=== PATIENT | female | born 1995 | race African-American/Black ===

== ENCOUNTER 2017-04-23 12:49 | Emergency (ER) ==
[2017-04-23] MEDS ORDERED: Acetaminophen 325 MG TAB ONE (14:17)
== END 2017-04-23 13:59 | disposition home or self-care (01) ==
LOC: ERS 12:49
DX: O9A.311 Physical abuse complicating pregnancy, first trimester (principal); S40.022A Contusion of left upper arm, initial encounter; S40.212A Abrasion of left shoulder, initial encounter; Y04.0XXA Assault by unarmed brawl or fight, initial encounter; Z3A.00 Weeks of gestation of pregnancy not specified
CPT/HCPCS: 99284

== ENCOUNTER 2018-03-23 18:28 | Emergency (ER) | payer SELFPAY ==
[2018-03-23] MEDS ORDERED: Acetaminophen 500 MG TAB ONE (19:31)
[2018-03-23 19:42] LABS: #Basophils 0.1 thou/uL (0.0-0.2); #Eosinphils 0.2 thou/uL (0.0-0.7); #Lymphocytes 1.9 thou/uL (1.20-3.40); #Monocytes 0.4 thou/uL (0.11-0.59); #Neutrophils 3.9 thou/uL (1.40-6.50); %Basophils 0.9 % (0.0-1.0); %Eosinophils 3.1 % (0.0-10.0); %Lymphocytes 29.6 % (21.0-51.0); %Monocytes 5.9 % (0.0-10.0); %Neutrophils 60.6 % (42.0-75.0); Hemoglobin 12.3 g/dL (12.0-16.0); Mean Corpuscular HGB CONC 31.1 g/dL (32.0-36.0); Mean Corpuscular Hemoglobin 25.3 pg (27.0-31.0); Mean Corpuscular Volume 81.2 fL (78.0-98.0); Mean Platelet Volume 9.1 fL (7.4-10.4); Platelet Count 215 thou/uL (130-400); RBC Distribution Width 13.3 % (11.5-14.5); Red Blood Cell (RBC) Count 4.88 mill/uL (4.20-5.40); White Blood Cell (WBC) Count 6.4 thou/uL (4.8-10.8)
[2018-03-23 19:52] LABS: BHCG - Serum Negative (NEGATIVE); Pregs Control Background? CLEAR/WHITE (CLR/WHITE); Pregs Control Bar Appear? YES (CONTROL BAR)
[2018-03-23 20:03] LABS: ALT (SGPT) 17 U/L (8-55); AST (SGOT) 18 U/L (5-34); Acetaminophen Less than 6.0 mcg/mL (10.0-30.0); Albumin 4.5 g/dL (3.5-5.0); Alcohol Less than 10 mg/dL (Less than 10); Alkaline Phosphatase 46 U/L (40-150); Anion Gap 10 mmol/L (10-20); BUN (Urea Nitrogen) 12 mg/dL (7.0-18.7); Bilirubin, Total 0.3 mg/dL (0.2-1.2); CK (CPK) 103 U/L (29-168); Calc. Creatinine Clearance 0 mL/min (70-130); Calcium 9.9 mg/dL (7.8-10.44); Carbon Dioxide 24 mmol/L (22-29); Chloride 109 mmol/L (98-107); Estimated GFR-MDRD Greater than 90; Globulin 3.2 g/dL (2.4-3.5); Glucose 95 mg/dL (70-105); Potassium 3.7 mmol/L (3.5-5.1); Protein, Total 7.7 g/dL (6.0-8.3); Salicylate Less than 8.0 mg/dL (15.0-30.0); Sodium 139 mmol/L (136-145)
--- NOTE | 2018-03-23 20:56 | CT ---
CT BRAIN WITHOUT CONTRAST: 03/23/2018 PROVIDED CLINICAL HISTORY: Head pain, status post injury. FINDINGS: The ventricular system appears normal in size and morphology. There is no evidence for intracranial hemorrhage or mass effect. Minimal frontal scalp swelling without evidence for skull fracture. IMPRESSION: No evidence for intracranial hemorrhage or mass effect. POS: ODALYS
[2018-03-23 21:02] LABS: Bilirubin Negative (Negative); Blood, Urine Moderate (Negative); Clarity CLEAR (Clear); Glucose, Urine (Dipstick) Negative (Negative); Leukocyte Small (Negative); Nitrite Negative (Negative); Protein, Urine (Dipstick) 30 mg/dL (Neg-Trace); Specific Gravity, Urine 1.029 (1.002-1.036)
[2018-03-23 21:04] LABS: Bacteria/HPF None Seen HPF (None Seen); Hyaline Casts/LPF 4-6 HYALINE CAST LPF (0-3 Hyaline); Pathc Cast-AUWi Flag 0.29 (0-2.49)
[2018-03-23 21:12] LABS: Amphetamine Not Detected (NotDetected); Barbiturates Screen Not Detected (NotDetected); Benzodiazepine Screen Not Detected (NotDetected); Cocaine Metabolite Screen Not Detected (NotDetected); Medtox Control Line Valid? VALID (VALID); Medtox Reader # READER 4; Methadone Not Detected (NotDetected); Methamphetamine Not Detected (NotDetected); Opiate Screen Not Detected (NotDetected); Oxycodone Screen Not Detected (NotDetected); Phencyclidine (PCP) Not Detected (NotDetected); THC/Cannabinoid Screen Detected (NotDetected); Tricyclic Screen Not Detected (NotDetected)
== END 2018-03-23 21:45 | disposition home or self-care (01) ==
LOC: ERS 18:28
DX: S01.01XA Laceration without foreign body of scalp, initial encounter (principal); F43.20 Adjustment disorder, unspecified; W22.09XA Striking against other stationary object, initial encounter
CPT/HCPCS: 36415; 70450; 80053; 80306; 80307; 81003; 81015; 82550; 84443; 84703; 85025

== ENCOUNTER 2018-10-05 07:46 | Outpatient (CLI) | payer OTHER ==
--- NOTE | 2018-10-05 10:54 | ULT ---
ULTRASOUND OBSTETRICAL COMPLETE: DATE: 10/05/2018. HISTORY: A 23-year-old female for O09.92, supervision of other high-risk pregnancies, second trimest er. Comments: complete anatomy/size and dates. FINDINGS: number: Blanco. lie: Cephalic. Maternal cervix: 3.5 cm and closed. Placenta: Anterior. No placenta previa. Amniotic fluid volume: MOE=8.5 cm. heart rate: 149 b.p.m. The following anatomy is visualized, with no evidence of anomalies: Head, lateral ventricles, cerebellum, nose and lips, upper limbs, lower limbs, four chamber heart, um bilical cord, cord insertion, stomach, kidneys, and bladder. Spine not well visualized because of position and movement. biometry: Head circumference (HC): 17.4 cm 20 w 0 d Biparietal diameter (BPD): 4.4 cm 19 w 2 d Abdominal circumference (AC): 14.6 cm 20 w 0 d Femur length (FL): 3.2 cm 20 w 0 d Average ultrasound age (AUA): 19 w 6 d Estimated date of delivery (ELTON): 02/23/2019. Last menstrual period (LMP): 05/18/2018. Gestational age by LMP: 20 w 0 d. Estimated weight (EFW): 318 g +/- 46 g (0 lb 11 oz +/- 2 oz. IMPRESSION: 1. Live 2nd trimester intrauterine gestation. 2. Estimated gestational age of 19 weeks, 6 days. 3. Cephalic lie. 4. spine poorly visualized because of position and motion. 5. Otherwise, normal anatomy. sandie [] POS: TRICIA
== END 2018-10-05 07:47 | disposition home or self-care (01) ==
LOC: BICULT 07:46
PROVIDERS: ATTEND Family Medicine
DX: O09.892 Supervision of other high risk pregnancies, second trimester (principal); Z3A.19 19 weeks gestation of pregnancy
CPT/HCPCS: 76805

== ENCOUNTER 2019-02-15 05:30 | Inpatient (IN) | payer OTHER ==
[2019-02-15] MEDS ORDERED: HYDROcodone/Acetaminophen 5/325 mg Tablet PO PRN ×3 (06:34→18:00)
[2019-02-15] MEDS ORDERED: Diphenoxylate HCl/Atropine Tablet PO PRN (06:34)
[2019-02-15] MEDS ORDERED: NS / Oxytocin 40 units/1000ml 1,000 ML IV PRN (06:34)
[2019-02-15] MEDS ORDERED: Butorphanol Tartrate 1 MG/ML VIAL SLOW IVP PRN (06:34)
[2019-02-15] MEDS ORDERED: Methylergonovine 0.2 MG/ML VIAL IM PRN ×2 (06:34→18:00)
[2019-02-15] MEDS ORDERED: Lidocaine 1% (PF) 30 ML VIAL SC PRN (06:34)
[2019-02-15] MEDS ORDERED: NS w/ Oxytocin 10 units 500 ML IV SCH ×2 (06:34)
[2019-02-15] MEDS ORDERED: Ibuprofen 800 MG TAB PO PRN (06:34)
[2019-02-15] MEDS ORDERED: Misoprostol 200 MCG TAB PR PRN (06:34)
[2019-02-15] MEDS ORDERED: Penicillin G Potassium 5 MILL.UNITS in Sodium Chloride 0.9% 100 ML IVPB SCH (06:34)
[2019-02-15] MEDS ORDERED: Ondansetron PF 4 MG/2 ML Vial IVP PRN ×4 (06:34→18:00)
[2019-02-15] MEDS ORDERED: Carboprost 250 MCG/ML AMP IM PRN (06:34)
[2019-02-15] MEDS ORDERED: hydrALAZINE 20 MG/ML VIAL SLOW IVP PRN ×2 (06:34→18:00)
[2019-02-15] MEDS ORDERED: Promethazine HCl 25 MG/ML VIAL IM PRN ×4 (06:34→18:00)
[2019-02-15 06:49] VITALS: BMI 26.2
[2019-02-15] MEDS: Lactated Ringer's 1,000 ML IV SCH ×2 (06:50→09:01)
[2019-02-15 07:16] LABS: Hemoglobin 9.9 g/dL (12.0-16.0); Mean Corpuscular HGB CONC 32.4 g/dL (32.0-36.0); Mean Corpuscular Hemoglobin 24.6 pg (27.0-31.0); Mean Corpuscular Volume 75.9 fL (78.0-98.0); Mean Platelet Volume 8.8 fL (7.4-10.4); Platelet Count 231 thou/uL (130-400); RBC Distribution Width 13.4 % (11.5-14.5); Red Blood Cell (RBC) Count 4.01 mill/uL (4.20-5.40); White Blood Cell (WBC) Count 7.9 thou/uL (4.8-10.8)
[2019-02-15 07:42] LABS: Syphilis Antibody Nonreactive (Nonreactive); Syphilis Antibody Index 0.05 S/CO (<1.00 Non-Reactive)
[2019-02-15 07:52] LABS: HBSAg Index 0.19 S/CO (0-0.99); Hep B Surf Ag Non-Reactive S/CO (NonReactive)
[2019-02-15] MEDS ORDERED: Fentanyl 4 mcg/Bup 0.1% Cadd 100 ML ONE ×2 (08:10→15:54)
[2019-02-15] MEDS ORDERED: diphenhydrAMINE 50 MG/ML VIAL IVP PRN ×2 (08:53)
[2019-02-15] MEDS ORDERED: ePHEDrine/0.9% NaCl/PF SYRINGE 50 mg/10 ml SLOW IVP PRN ×2 (08:53)
[2019-02-15] MEDS ORDERED: Lactated Ringer's 500 ML IV PRN ×2 (08:53)
[2019-02-15] MEDS ORDERED: Acetaminophen 325 MG TAB PO PRN ×2 (08:53)
[2019-02-15] MEDS ORDERED: Naloxone HCl 0.4 mg/ml Vial IVP PRN ×4 (08:53)
[2019-02-15] MEDS ORDERED: Fentanyl 4 mcg/Bupivacaine 0.1% Cassette 100 ML EPIDURAL SCH (09:00)
[2019-02-15] MEDS ORDERED: Communication Order-Pharmacy FS SCH ×2 (09:00)
[2019-02-15] MEDS: Penicillin G 2.5 MILL.units 2.5 MILL.UNITS in Premix Bag 1 BAG IVPB SCH ×2 (11:15→15:17)
[2019-02-15] MEDS ORDERED: Misoprostol 200 MCG TAB ONE (16:47)
[2019-02-15] MEDS ORDERED: Preparation H Ointment 28 GM TUBE PR PRN (18:00)
[2019-02-15] MEDS ORDERED: diphenhydrAMINE 25 MG CAP PO PRN (18:00)
[2019-02-15] MEDS ORDERED: Benzocaine-Menthol 82.5 ML CAN TOP PRN (18:00)
[2019-02-15] MEDS ORDERED: NS / Oxytocin 40 units/1000ml 1,000 ML IV SCH (18:00)
[2019-02-15] MEDS ORDERED: Adacel (T-DAP) 0.5 ML SYRINGE IM ONE (18:00)
[2019-02-15] MEDS ORDERED: Milk Of Magnesia 30 ML UDCUP PO PRN (18:00)
[2019-02-15] MEDS ORDERED: Bisacodyl 10 MG SUPP PR PRN (18:00)
[2019-02-15] MEDS: Docusate Calcium (SURFAK) 240 MG CAP PO SCH (23:15)
[2019-02-15] MEDS: Ibuprofen 800 MG TAB PO SCH (23:15)
[2019-02-16] MEDS: Ibuprofen 800 MG TAB PO SCH ×3 (06:18→23:14)
[2019-02-16 06:19] LABS: Hemoglobin 9.1 g/dL (12.0-16.0); Mean Corpuscular HGB CONC 31.6 g/dL (32.0-36.0); Mean Corpuscular Hemoglobin 24.5 pg (27.0-31.0); Mean Corpuscular Volume 77.6 fL (78.0-98.0); Mean Platelet Volume 8.9 fL (7.4-10.4); Platelet Count 194 thou/uL (130-400); RBC Distribution Width 13.6 % (11.5-14.5); Red Blood Cell (RBC) Count 3.72 mill/uL (4.20-5.40); White Blood Cell (WBC) Count 11.3 thou/uL (4.8-10.8)
[2019-02-16] MEDS: Docusate Calcium (SURFAK) 240 MG CAP PO SCH ×2 (11:01→20:59)
[2019-02-16] MEDS: Prenatal Vitamin 1 TAB PO SCH (11:01)
[2019-02-16] MEDS: Ferrous Sulfate 325 MG TAB PO SCH (11:02)
[2019-02-17] MEDS: Ibuprofen 800 MG TAB PO SCH ×2 (06:30→07:58)
[2019-02-17] MEDS: Ferrous Sulfate 325 MG TAB PO SCH ×2 (07:58→08:53)
[2019-02-17 08:05] VITALS: BP 106/66; TEMP 98.4
[2019-02-17] MEDS: Prenatal Vitamin 1 TAB PO SCH (08:53)
[2019-02-17] MEDS: Docusate Calcium (SURFAK) 240 MG CAP PO SCH (08:53)
== END 2019-02-17 13:27 | disposition home or self-care (01) | DRG 807 ==
LOC: L&D 06:15 → 3SW 21:53
PROVIDERS: ADMIT Family Medicine; ATTEND Family Medicine
PROC: 10E0XZZ Delivery of Products of Conception, External Approach (ICD-10-PCS; principal; 2019-02-15)
DX: O99.824 Streptococcus B carrier state complicating childbirth (principal); Z37.0 Single live birth; Z3A.39 39 weeks gestation of pregnancy; O71.82 Other specified trauma to perineum and vulva
CPT/HCPCS: 36415; 51702; 85027; 86780; 86850; 86900; 86901; 87340; J2540; J2590; J3490

== ENCOUNTER 2019-06-07 19:52 | Emergency (ER) | payer OTHER, SELFPAY | END 2019-06-07 21:01 | disposition home or self-care (01) | LOC: ERS 19:52 | DX: R51 Headache (principal) | CPT/HCPCS: 99281 ==

== ENCOUNTER 2019-07-21 01:57 | Emergency (ER) | payer SELFPAY ==
[2019-07-21] MEDS ORDERED: Mag-Al 1200 mg/1200 mg/30 ML UDCUP ONE (02:23)
[2019-07-21] MEDS ORDERED: Lidocaine Viscous Sol 2% 15 ml UD Cup ONE (02:23)
[2019-07-21 02:26] LABS: Bilirubin Negative (Negative); Blood, Urine Negative (Negative); Clarity Clear (Clear); Glucose, Urine (Dipstick) Normal (Negative); Leukocyte Negative Leu/uL (Negative); Nitrite Negative (Negative); Protein, Urine (Dipstick) 10 mg/dL (Neg-Trace); Urobilinogen Normal mg/dL (Less than 2)
[2019-07-21 02:27] LABS: Pregnancy Test - Urine (BHCG) Negative (Negative); Pregu Control Background? CLEAR/WHITE (CLR/WHITE); Pregu Control Bar Appear? YES (CONTROL BAR)
== END 2019-07-21 02:45 | disposition home or self-care (01) ==
LOC: ERS 01:57
DX: R10.12 Left upper quadrant pain (principal); F17.200 Nicotine dependence, unspecified, uncomplicated
CPT/HCPCS: 81003; 81025; 99284

== ENCOUNTER 2020-03-09 08:25 | Outpatient (CLI) | payer OTHER ==
--- NOTE | 2020-03-09 10:49 | ULT ---
OB ULTRASOUND: History anatomy. FINDINGS: A single live intrauterine gestation is seen with measurements corresponding to an estimated gestatio nal age of 19 weeks 6 days and ELTON at 07/28/2020. The estimated weight measures 304 gm or 11 ou nces (20% by Hadlock criteria). Biometry: BPD 4.62 cm, 20 weeks 0 days. HC 17.12 cm, 19 weeks 5 days AC 13.69 cm, 19 weeks 1 day FL 3.26 cm, 20 weeks 2 days heart rate measures 147 b.p.m. MOE measures 12.2 cm. The placenta is anteriorly located witho ut evidence of placenta previa. Cervical length measures 3.2 cm. A 3-vessel cord, cord insertion, kidneys, bladder, stomach, 4-chamber heart, lateral ventricles , cerebellum, spine, lips/nose, upper and lower extremities are visualized. No definite anomalies ar e seen. Maternal organs are not visualized. IMPRESSION: Single live intrauterine of 19 weeks 6 days and estimated date of delivery at 07/28/2020. POS: JARON
== END 2020-03-09 08:26 | disposition home or self-care (01) ==
LOC: BICULT 08:25
PROVIDERS: ATTEND Family Medicine
DX: O09.292 Supervision of pregnancy with other poor reproductive or obstetric history, second trimester (principal); Z3A.19 19 weeks gestation of pregnancy
CPT/HCPCS: 76805

== ENCOUNTER 2021-02-06 12:37 | Emergency (ER) | payer OTHER, SELFPAY ==
[2021-02-06 14:13] LABS: #Basophils 0.1 thou/uL (0.0-0.2); #Eosinphils 0.1 thou/uL (0.0-0.7); #Lymphocytes 1.6 thou/uL (1.20-3.40); #Monocytes 0.3 thou/uL (0.11-0.59); #Neutrophils 3.9 thou/uL (1.40-6.50); %Basophils 1.1 % (0.0-1.0); %Eosinophils 0.9 % (0.0-10.0); %Lymphocytes 26.7 % (21.0-51.0); %Monocytes 4.7 % (0.0-10.0); %Neutrophils 66.6 % (42.0-75.0); BHCG - Serum POSITIVE (NEGATIVE); Mean Corpuscular HGB CONC 32.8 g/dL (32.0-36.0); Mean Corpuscular Hemoglobin 26.3 pg (27.0-31.0); Mean Corpuscular Volume 80.1 fL (78.0-98.0); Mean Platelet Volume 8.9 fL (7.4-10.4); Platelet Count 233 thou/uL (130-400); Pregs Control Background? CLEAR/WHITE (CLR/WHITE); Pregs Control Bar Appear? YES (CONTROL BAR); Red Blood Cell (RBC) Count 4.57 mill/uL (4.20-5.40); White Blood Cell (WBC) Count 5.8 thou/uL (4.8-10.8)
[2021-02-06 14:32] LABS: ALT (SGPT) 14 U/L (8-55); AST (SGOT) 16 U/L (5-34); Albumin 4.2 g/dL (3.5-5.0); Alkaline Phosphatase 63 U/L (40-110); Anion Gap 10 mmol/L (10-20); BUN (Urea Nitrogen) 8 mg/dL (7.0-18.7); Bilirubin, Total 0.4 mg/dL (0.2-1.2); Calc. Creatinine Clearance 0 mL/min (70-130); Calcium 10.4 mg/dL (7.8-10.44); Carbon Dioxide 23 mmol/L (22-29); Chloride 107 mmol/L (98-107); Globulin 3.6 g/dL (2.4-3.5); Glucose 91 mg/dL (70-105); Potassium 3.7 mmol/L (3.5-5.1); Protein, Total 7.8 g/dL (6.0-8.3); Sodium 136 mmol/L (136-145)
== END 2021-02-06 15:25 | disposition home or self-care (01) ==
LOC: ERS 12:37
DX: O99.891 Other specified diseases and conditions complicating pregnancy (principal); R55 Syncope and collapse; O99.331 Smoking (tobacco) complicating pregnancy, first trimester; F17.200 Nicotine dependence, unspecified, uncomplicated; Z3A.01 Less than 8 weeks gestation of pregnancy
CPT/HCPCS: 36415; 80053; 84703; 85025; 86850; 86900; 86901; 93005

== ENCOUNTER 2025-02-17 10:54 | Emergency (ER) | payer OTHER ==
[2025-02-17 12:19] LABS: Bacteria/HPF None Seen HPF (None Seen); CAUTI Indications for Culture Pelvic or flank pain; Glucose, Urine (Dipstick) Normal (Negative); Leukocyte Negative Leu/uL (Negative); Protein, Urine (Dipstick) 10 mg/dL (Neg-Trace); RBC/HPF 0-3 HPF (0-3); Specific Gravity, Urine 1.028 (1.002-1.036); WBC/HPF 0-3 HPF (0-3)
[2025-02-17 12:21] LABS: Urine Culture Reflex No No
[2025-02-17 13:12] LABS: #Basophils Less than 0.03 10x3/uL (0.0-0.2); #Eosinophils Less than 0.03 10x3/uL (0.0-0.7); #Monocytes 0.29 10x3/uL (0.11-0.59); #Neutrophils 11.41 10x3/uL (1.40-6.50); %Basophils 0.1 % (0.0-1.0); %Eosinophils 0.0 % (0.0-10.0); %Lymphocytes 5.4 % (21.0-51.0); %Monocytes 2.3 % (0.0-10.0); %Neutrophils 91.5 % (42.0-75.0); Hematocrit 29.6 % (36.0-47.0); Hemoglobin 9.1 g/dL (12.0-16.0); Mean Corpuscular Hemoglobin 23.7 pg (27.0-31.0); Mean Corpuscular Volume 77.1 fL (78.0-98.0); Platelet Count 422 10x3/uL (130-400); Red Blood Cell (RBC) Count 3.84 mill/uL (4.20-5.40); White Blood Cell (WBC) Count 12.48 10x3/uL (4.8-10.8)
[2025-02-17 13:30] LABS: ALT (SGPT) 56 U/L (Less than 34); AST (SGOT) 51 U/L (11-34); Albumin 3.5 g/dL (3.1-4.5); Alkaline Phosphatase 47 U/L (40-110); Anion Gap 13 mmol/L (10-20); BUN (Urea Nitrogen) 12 mg/dL (7.0-18.7); Bilirubin, Total 0.3 mg/dL (0.3-1.2); Calc. Creatinine Clearance 0 mL/min (70-130); Calcium 10.6 mg/dL (7.8-10.44); Carbon Dioxide 22 mmol/L (22-29); Chloride 106 mmol/L (98-107); Globulin 3.4 g/dL (2.4-3.5); Glucose 121 mg/dL (70-105); Lipase 21 U/L (8-78); Potassium 3.8 mmol/L (3.5-5.1); Sodium 137 mmol/L (136-145)
[2025-02-17 13:41] LABS: BHCG - Serum Negative (NEGATIVE); Pregs Control Background? CLEAR/WHITE (CLR/WHITE); Pregs Control Bar Appear? YES (CONTROL BAR)
== END 2025-02-17 16:08 | disposition home or self-care (01) ==
LOC: ERS 10:54
DX: K52.9 Noninfective gastroenteritis and colitis, unspecified (principal)
CPT/HCPCS: 74177; 80053; 81001; 83690; 84703; 85025; 93005; 96361; 96374; J1642; J3010

== ENCOUNTER 2025-02-27 10:44 | Inpatient (IN) | payer OTHER, SELFPAY ==
[2025-02-27 12:05] LABS: #Basophils 0.03 10x3/uL (0.0-0.2); #Eosinophils Less than 0.03 10x3/uL (0.0-0.7); #Monocytes 0.21 10x3/uL (0.11-0.59); #Neutrophils 7.15 10x3/uL (1.40-6.50); %Basophils 0.4 % (0.0-1.0); %Eosinophils 0.3 % (0.0-10.0); %Lymphocytes 5.4 % (21.0-51.0); %Monocytes 2.7 % (0.0-10.0); %Neutrophils 90.4 % (42.0-75.0); Hematocrit 31.8 % (36.0-47.0); Hemoglobin 9.5 g/dL (12.0-16.0); Mean Corpuscular Hemoglobin 23.2 pg (27.0-31.0); Mean Corpuscular Volume 77.6 fL (78.0-98.0); Platelet Count 216 10x3/uL (130-400); Red Blood Cell (RBC) Count 4.10 mill/uL (4.20-5.40); White Blood Cell (WBC) Count 7.90 10x3/uL (4.8-10.8)
[2025-02-27 12:23] LABS: CAUTI Indications for Culture Fever or rigors; Glucose, Urine (Dipstick) Normal (Negative); Leukocyte 75 Leu/uL (Negative); Protein, Urine (Dipstick) 50 mg/dL (Neg-Trace); Specific Gravity, Urine 1.026 (1.002-1.036); WBC/HPF 21-50 HPF (0-3)
[2025-02-27 12:24] LABS: Bacteria/HPF 1+ HPF (None Seen)
[2025-02-27] MEDS ORDERED: diphenhydrAMINE 50 MG/ML VIAL ONE (12:25)
[2025-02-27 12:26] LABS: Urine Culture Reflex Yes Yes
[2025-02-27] MEDS ORDERED: Metoclopramide HCl 10 MG (2 mL) VIAL ONE (12:26)
[2025-02-27] MEDS ORDERED: Cefepime 2 GM VIAL ONE (12:26)
[2025-02-27 12:31] LABS: BHCG - Serum Negative (NEGATIVE); Pregs Control Background? CLEAR/WHITE (CLR/WHITE); Pregs Control Bar Appear? YES (CONTROL BAR)
[2025-02-27 12:37] LABS: ALT (SGPT) 51 U/L (Less than 34); AST (SGOT) 46 U/L (11-34); Albumin 3.7 g/dL (3.1-4.5); Alkaline Phosphatase 52 U/L (40-110); Anion Gap 13 mmol/L (10-20); BUN (Urea Nitrogen) 10 mg/dL (7.0-18.7); Bilirubin, Total 0.8 mg/dL (0.3-1.2); Calc. Creatinine Clearance 0 mL/min (70-130); Calcium 10.9 mg/dL (7.8-10.44); Carbon Dioxide 24 mmol/L (22-29); Chloride 97 mmol/L (98-107); Globulin 3.9 g/dL (2.4-3.5); Glucose 95 mg/dL (70-105); Potassium 3.9 mmol/L (3.5-5.1); Sodium 130 mmol/L (136-145)
[2025-02-27 12:51] LABS: Actual Bicarbonate (HCO3v) 24.5 mEq/L (22-28); Base Excess -0.7 mEq/L (-2.0 to +3.0); Calcium, Ionized (venous) 1.36 mmol/L (1.16-1.32); Chloride (VBG) 97 mmol/L (98-106); Hematocrit-VBG 30 % (36.0-47.0); Hemoglobin (Hb) 10.2 g/dL (11.7-15.5); Potassium (VBG) 3.78 mmol/L (3.70-5.30); Sodium 132 mmol/L (133-146)
[2025-02-27] MEDS ORDERED: Iopamidol-370 76% 500 ML MDV (1 ML CHARGE) ONE (15:14)
[2025-02-27] MEDS ORDERED: VANCOMYCIN 2 GRAM/400 ML BAG ONE (17:44)
[2025-02-27] MEDS ORDERED: Acetaminophen 500 MG TAB ONE (18:04)
[2025-02-27 22:04] VITALS: BMI 25.4
[2025-02-28] MEDS: Vancomycin 1 GM Premix Bag IVPB SCH (00:16)
[2025-02-28 01:26] LABS: #Basophils 0.04 10x3/uL (0.0-0.2); #Eosinophils 0.03 10x3/uL (0.0-0.7); #Monocytes 0.33 10x3/uL (0.11-0.59); #Neutrophils 4.01 10x3/uL (1.40-6.50); %Basophils 0.8 % (0.0-1.0); %Eosinophils 0.6 % (0.0-10.0); %Lymphocytes 14.6 % (21.0-51.0); %Monocytes 6.3 % (0.0-10.0); %Neutrophils 76.9 % (42.0-75.0); Hematocrit 23.7 % (36.0-47.0); Hemoglobin 6.9 g/dL (12.0-16.0); Mean Corpuscular Hemoglobin 23.3 pg (27.0-31.0); Mean Corpuscular Volume 80.1 fL (78.0-98.0); Platelet Count 177 10x3/uL (130-400); Red Blood Cell (RBC) Count 2.96 mill/uL (4.20-5.40); White Blood Cell (WBC) Count 5.21 10x3/uL (4.8-10.8)
[2025-02-28 05:04] LABS: Vancomycin, Random 23.2 ug/mL (See Comment)
[2025-02-28 05:06] LABS: ALT (SGPT) 33 U/L (Less than 34); AST (SGOT) 24 U/L (11-34); Albumin 2.9 g/dL (3.1-4.5); Alkaline Phosphatase 42 U/L (40-110); Anion Gap 12 mmol/L (10-20); BUN (Urea Nitrogen) 6 mg/dL (7.0-18.7); Bilirubin, Total 0.5 mg/dL (0.3-1.2); Calc. Creatinine Clearance 177 mL/min (70-130); Calcium 9.5 mg/dL (7.8-10.44); Carbon Dioxide 21 mmol/L (22-29); Chloride 104 mmol/L (98-107); Globulin 3.2 g/dL (2.4-3.5); Glucose 91 mg/dL (70-105); Potassium 3.5 mmol/L (3.5-5.1); Sodium 133 mmol/L (136-145)
[2025-02-28 12:28] LABS: #Basophils 0.03 10x3/uL (0.0-0.2); #Eosinophils 0.06 10x3/uL (0.0-0.7); #Monocytes 0.39 10x3/uL (0.11-0.59); #Neutrophils 3.89 10x3/uL (1.40-6.50); %Basophils 0.6 % (0.0-1.0); %Eosinophils 1.2 % (0.0-10.0); %Lymphocytes 15.0 % (21.0-51.0); %Monocytes 7.5 % (0.0-10.0); %Neutrophils 74.7 % (42.0-75.0); Hematocrit 30.0 % (36.0-47.0); Hemoglobin 9.2 g/dL (12.0-16.0); Mean Corpuscular Hemoglobin 24.4 pg (27.0-31.0); Mean Corpuscular Volume 79.6 fL (78.0-98.0); Platelet Count 200 10x3/uL (130-400); Red Blood Cell (RBC) Count 3.77 mill/uL (4.20-5.40); White Blood Cell (WBC) Count 5.20 10x3/uL (4.8-10.8)
[2025-02-28 15:21] VITALS: BMI 25.4
[2025-02-28] MEDS: Vancomycin 1 GM/200 ML (FROZEN) BAG ONE ×2 (16:30→18:08)
[2025-03-01 04:33] LABS: #Basophils 0.03 10x3/uL (0.0-0.2); #Eosinophils 0.06 10x3/uL (0.0-0.7); #Monocytes 0.53 10x3/uL (0.11-0.59); #Neutrophils 2.93 10x3/uL (1.40-6.50); %Basophils 0.6 % (0.0-1.0); %Eosinophils 1.3 % (0.0-10.0); %Lymphocytes 22.6 % (21.0-51.0); %Monocytes 11.4 % (0.0-10.0); %Neutrophils 63.0 % (42.0-75.0); Hematocrit 28.1 % (36.0-47.0); Hemoglobin 8.5 g/dL (12.0-16.0); Mean Corpuscular Hemoglobin 23.7 pg (27.0-31.0); Mean Corpuscular Volume 78.5 fL (78.0-98.0); Platelet Count 233 10x3/uL (130-400); Red Blood Cell (RBC) Count 3.58 mill/uL (4.20-5.40); White Blood Cell (WBC) Count 4.65 10x3/uL (4.8-10.8)
[2025-03-01 04:36] LABS: Anion Gap 10 mmol/L (10-20); BUN (Urea Nitrogen) Less than 4 mg/dL (7.0-18.7); Calc. Creatinine Clearance 184 mL/min (70-130); Calcium 9.6 mg/dL (7.8-10.44); Carbon Dioxide 21 mmol/L (22-29); Chloride 107 mmol/L (98-107); Glucose 106 mg/dL (70-105); Potassium 3.4 mmol/L (3.5-5.1); Sodium 135 mmol/L (136-145)
[2025-03-02 05:35] LABS: Hematocrit 29.5 % (36.0-47.0); Hemoglobin 9.0 g/dL (12.0-16.0); Mean Corpuscular Hemoglobin 23.9 pg (27.0-31.0); Mean Corpuscular Volume 78.2 fL (78.0-98.0); Platelet Count 260 10x3/uL (130-400); Red Blood Cell (RBC) Count 3.77 mill/uL (4.20-5.40); White Blood Cell (WBC) Count 5.34 10x3/uL (4.8-10.8)
[2025-03-02 05:41] LABS: Vancomycin, Random 21.3 ug/mL (See Comment)
[2025-03-02 05:46] LABS: Anion Gap 11 mmol/L (10-20); BUN (Urea Nitrogen) 5 mg/dL (7.0-18.7); Calc. Creatinine Clearance 173 mL/min (70-130); Calcium 10.3 mg/dL (7.8-10.44); Carbon Dioxide 24 mmol/L (22-29); Chloride 106 mmol/L (98-107); Glucose 110 mg/dL (70-105); Potassium 3.4 mmol/L (3.5-5.1); Sodium 138 mmol/L (136-145)
[2025-03-02 06:10] LABS: Burr Cells SLIGHT = 2-5 cells HPF (0-1); Microcytosis SLIGHT = 6-15 cells HPF (0-5); Platelet Adequacy Comment Platelets Normal; Polychromasia SLIGHT = 2-3 cells HPF (0-2); Smudge Cells 8.8 %; Target Cells SLIGHT = 2-5 cells HPF (0-1)
[2025-03-02] MEDS: FLU (Fluarix Triv) 25-26 (6MOS UP)/PF 45 MCG/0.5 ML Syringe IM ONE (23:15)
[2025-03-02] MEDS: PNEUMOC 20-VAL CONJ-DIP CRM/PF 0.5 ML SYRINGE IM ONE (23:16)
[2025-03-03 05:02] LABS: Hematocrit 29.9 % (36.0-47.0); Hemoglobin 9.0 g/dL (12.0-16.0); Mean Corpuscular Hemoglobin 23.8 pg (27.0-31.0); Mean Corpuscular Volume 79.1 fL (78.0-98.0); Platelet Count 272 10x3/uL (130-400); Red Blood Cell (RBC) Count 3.78 mill/uL (4.20-5.40); White Blood Cell (WBC) Count 5.01 10x3/uL (4.8-10.8)
[2025-03-03 05:15] LABS: Anion Gap 11 mmol/L (10-20); BUN (Urea Nitrogen) 7 mg/dL (7.0-18.7); Calc. Creatinine Clearance 177 mL/min (70-130); Calcium 10.3 mg/dL (7.8-10.44); Carbon Dioxide 25 mmol/L (22-29); Chloride 105 mmol/L (98-107); Glucose 102 mg/dL (70-105); Potassium 3.4 mmol/L (3.5-5.1); Sodium 138 mmol/L (136-145)
[2025-03-03 05:37] LABS: Anisocytosis SLIGHT = 6-15 cells HPF (0-5); Microcytosis SLIGHT = 6-15 cells HPF (0-5); Platelet Adequacy Comment Platelets Normal; Polychromasia SLIGHT = 2-3 cells HPF (0-2)
[2025-03-03] MEDS ORDERED: Electrolyte Replacement Protocol 1 EACH FS SCH (08:45)
[2025-03-03] MEDS ORDERED: PHOS-NAK 1 PKT PACK PO PRN (09:15)
[2025-03-03] MEDS ORDERED: Potassium Chloride 20 MEQ in Premix 1 BAG IVPB PRN (09:15)
[2025-03-03] MEDS ORDERED: Magnesium 2 GM/50 ML(in water) 2 GM in Premix 1 BAG IVPB PRN (09:15)
[2025-03-04 04:30] LABS: #Basophils 0.03 10x3/uL (0.0-0.2); #Eosinophils 0.08 10x3/uL (0.0-0.7); #Monocytes 0.54 10x3/uL (0.11-0.59); #Neutrophils 3.12 10x3/uL (1.40-6.50); %Basophils 0.6 % (0.0-1.0); %Eosinophils 1.6 % (0.0-10.0); %Lymphocytes 21.1 % (21.0-51.0); %Monocytes 11.1 % (0.0-10.0); %Neutrophils 64.2 % (42.0-75.0); Hematocrit 30.5 % (36.0-47.0); Hemoglobin 9.1 g/dL (12.0-16.0); Mean Corpuscular Hemoglobin 24.0 pg (27.0-31.0); Mean Corpuscular Volume 80.5 fL (78.0-98.0); Platelet Count 291 10x3/uL (130-400); Red Blood Cell (RBC) Count 3.79 mill/uL (4.20-5.40); White Blood Cell (WBC) Count 4.87 10x3/uL (4.8-10.8)
[2025-03-04 04:50] LABS: Anion Gap 13 mmol/L (10-20); BUN (Urea Nitrogen) 7 mg/dL (7.0-18.7); Calc. Creatinine Clearance 170 mL/min (70-130); Calcium 10.4 mg/dL (7.8-10.44); Carbon Dioxide 24 mmol/L (22-29); Chloride 107 mmol/L (98-107); Glucose 103 mg/dL (70-105); Potassium 3.8 mmol/L (3.5-5.1); Sodium 140 mmol/L (136-145); Vancomycin, Random 23.3 ug/mL (See Comment)
[2025-03-04 04:51] LABS: CRP, High Sensitivity at Bryan 2.10 mg/dL (< or = 0.5)
[2025-03-08 07:52] VITALS: BP 99/65; TEMP 98.4
== END 2025-03-08 14:30 | disposition home or self-care (01) | DRG 314 ==
LOC: ERS 10:44 → OBS 17:48 → MSONC 03-02 17:53
PROVIDERS: ADMIT Student in an Organized Health Care Education/Training Program; ATTEND Family Medicine
PROC: 02PY33Z Removal of Infusion Device from Great Vessel, Percutaneous Approach (ICD-10-PCS; principal; 2025-02-27)
PROC: 3E03329 Introduction of Other Anti-infective into Peripheral Vein, Percutaneous Approach (ICD-10-PCS; 2025-02-27)
DX: T80.211A Bloodstream infection due to central venous catheter, initial encounter (principal); A41.02 Sepsis due to Methicillin resistant Staphylococcus aureus; E87.1 Hypo-osmolality and hyponatremia; D84.9 Immunodeficiency, unspecified; Z98.890 Other specified postprocedural states; C50.911 Malignant neoplasm of unspecified site of right female breast; Z92.21 Personal history of antineoplastic chemotherapy; B95.61 Methicillin susceptible Staphylococcus aureus infection as the cause of diseases classified elsewhere; R19.7 Diarrhea, unspecified; D50.9 Iron deficiency anemia, unspecified; E87.6 Hypokalemia; R74.01 Elevation of levels of liver transaminase levels
CPT/HCPCS: 36415; 36416; 36430; 70450; 71045; 71275; 80048; 80053; 80202; 81001; 82550; 82805; 83605; 84100; 84145; 84484; 84703; 85025; 86141; 86850; 86900; 86901; 87040; 87070; 87071; 87077; 87086; 87149; 87186; 87205; 93005; 96365; 96367; 96375; 97139; J0692; J1200; J2765; J3373; J3375; J7030; P9016; Q9967

== ENCOUNTER 2025-03-26 08:10 | Emergency (ER) | payer MEDICAID, SELFPAY ==
[2025-03-26 09:00] LABS: #Basophils Less than 0.03 10x3/uL (0.0-0.2); #Eosinophils 0.11 10x3/uL (0.0-0.7); #Monocytes 0.11 10x3/uL (0.11-0.59); #Neutrophils 4.24 10x3/uL (1.40-6.50); %Basophils 0.4 % (0.0-1.0); %Eosinophils 2.3 % (0.0-10.0); %Lymphocytes 6.8 % (21.0-51.0); %Monocytes 2.3 % (0.0-10.0); %Neutrophils 88.0 % (42.0-75.0); Hematocrit 30.0 % (36.0-47.0); Hemoglobin 9.4 g/dL (12.0-16.0); Mean Corpuscular Hemoglobin 24.5 pg (27.0-31.0); Mean Corpuscular Volume 78.3 fL (78.0-98.0); Platelet Count 216 10x3/uL (130-400); Red Blood Cell (RBC) Count 3.83 mill/uL (4.20-5.40); White Blood Cell (WBC) Count 4.82 10x3/uL (4.8-10.8)
[2025-03-26 09:11] LABS: BHCG - Serum Negative (NEGATIVE); Pregs Control Background? CLEAR/WHITE (CLR/WHITE); Pregs Control Bar Appear? YES (CONTROL BAR)
[2025-03-26 09:18] LABS: ALT (SGPT) 37 U/L (Less than 34); AST (SGOT) 37 U/L (11-34); Albumin 4.0 g/dL (3.1-4.5); Alkaline Phosphatase 49 U/L (40-110); Anion Gap 12 mmol/L (10-20); BUN (Urea Nitrogen) 6 mg/dL (7.0-18.7); Bilirubin, Total 0.5 mg/dL (0.3-1.2); Calc. Creatinine Clearance 0 mL/min (70-130); Calcium 10.4 mg/dL (7.8-10.44); Carbon Dioxide 18 mmol/L (22-29); Chloride 105 mmol/L (98-107); Globulin 3.9 g/dL (2.4-3.5); Glucose 98 mg/dL (70-105); Potassium 4.3 mmol/L (3.5-5.1); Sodium 131 mmol/L (136-145)
[2025-03-26] MEDS ORDERED: Acetaminophen 500 MG TAB ONE (09:20)
[2025-03-26] MEDS ORDERED: Ketorolac Tromethamine 30 MG (1 mL) VIAL ONE (09:20)
== END 2025-03-26 10:34 | disposition home or self-care (01) ==
LOC: ERS 08:10
DX: J10.1 Influenza due to other identified influenza virus with other respiratory manifestations (principal); E87.1 Hypo-osmolality and hyponatremia; Z86.2 Personal history of diseases of the blood and blood-forming organs and certain disorders involving the immune mechanism; Z85.3 Personal history of malignant neoplasm of breast
CPT/HCPCS: 71046; 80053; 83605; 84484; 84703; 85025; 87040; 87081; 87428; 87430; 93005; 96372; J1885